=== PATIENT | male | born 1990 | race Caucasian/White ===

== ENCOUNTER 2018-12-03 00:31 | Emergency (ER) | payer BC ==
[2018-12-03] MEDS ORDERED: Sodium Chloride 0.9% 2.5 ML Syringe FLUSH PRN (00:32)
[2018-12-03] MEDS ORDERED: Sodium Chloride 0.9% 10 ML Syringe FLUSH PRN (00:32)
[2018-12-03] MEDS ORDERED: Sodium Chloride 0.9% 1,000 ML IV ONE (00:42)
[2018-12-03] MEDS ORDERED: Pantoprazole 40 MG Vial IVPUSH ONE (00:42)
[2018-12-03] MEDS ORDERED: Ketorolac 30 MG/ML SDV IVPUSH ONE (00:43)
[2018-12-03] MEDS ORDERED: Aspirin 81 MG Tab.Chew PO ONE (00:43)
--- NOTE | 2018-12-03 00:49 | EDM.PDOC ---
ED HPI GENERAL MEDICAL PROBLEM - General Chief Complaint: Chest Pain Stated Complaint: CHEST PAIN Time Seen by Provider: 12/03/18 00:40 - History of Present Illness INITIAL COMMENTS - FREE TEXT/NARRATIVE: HISTORY AND PHYSICAL: History of present illness: The patient is a 28-year-old male who works here on the [employer] and lives in [place] and is scheduled to drive home in the morning for 12 hours and presents with concerns about right sided anterior chest pain that has been ongoing for the last 3 days. The patient has no local provider and says he does work here and had a similar episode about a year ago but it was more associated with palpitations which she has not had with this episode and he was drinking a lot of energy drinks at that time which she has cut back on. The patient says that about 3 days ago he started having this left anterior chest pain that seemed to radiate up his chest and caused tingling and numbness in her right upper extremity. He had no left chest pain but there was associated shortness of breath. He has had intermittent nausea and vomiting throughout the last 3 days and he says the pain has been waxing and waning but it is never gone away completely. It is not worsened by taking deep breaths or movement and he denies any recent trauma or increased strenuous activity. He has had normal bowel movements and when he vomits it is not black or bloody. The patient says that he has trouble with his wisdom teeth and that is why he is going home to have them removed and over the last few weeks he has taken increased amount of ibuprofen [id number]. He has no GI history that he is aware of. The patient did not take any medication for pain specifically this evening or specifically for this discomfort such as antacids. She is not eating a healthy diet here while he is at work and is eating more on the go but he has no history of food intolerance. He has no history of any abdominal surgical history gallbladder liver or pancreas issues. He says he drinks occasionally and not regularly and he does smoke a small amount of cigarettes but no drug use. He says that his mother does have some heart issues but he is not sure what they are but they're not stents are open heart surgery and his father and siblings have no cardiac disease. Any flank pain or urinary complaints and has no leg pain or swelling. When he talks about the tingling in his arm he also says that that has been constant over the last 3 days and there is no weakness in the arm. The patient says that the more he reads on the Internet and when he was reading the label on the ibuprofen he became more stressed and anxious and thought he should not get into a car to drive home to [place] in the morning and less he get checked out. This is the only reason why he says he is here Review of systems: As per history of present illness and below otherwise all systems reviewed and negative. Past medical history: As per history of present illness and as reviewed below otherwise noncontributory. Surgical history: As per history of present illness and as reviewed below otherwise noncontributory. Social history: No reported history of drug or alcohol abuse. Family history: As per history of present illness and as reviewed below otherwise noncontributory. Physical exam: General: Well-developed well-nourished man who is nontoxic and vital signs are noted by me. He is very physically fit HEENT: Atraumatic, normocephalic, , negative for conjunctival pallor or scleral icterus, mucous membranes moist, throat clear, neck supple, nontender, trachea midline. Lungs: Clear to auscultation, breath sounds equal bilaterally, chest nontender. On palpation of the right chest wall I cannot reproduce the pain and there are no defects deformities or crepitus. The patient indicates under his rib cage as the site of the discomfort. Heart: S1S2, regular, negative for clicks, rubs, or JVD. Abdomen: Soft, nondistended, nontender. More specifically in the right upper quadrant I cannot elicit any tenderness and bowel sounds are slightly hypoactive. There is no rebound or guarding throughout my exam and no tympany on percussion Negative for masses or hepatosplenomegaly. Negative for costovertebral tenderness. Pelvis: Stable nontender. Genitourinary: Deferred. Rectal: Deferred. Extremities: Atraumatic, negative for cords or calf pain. Neurovascular unremarkable. No pedal edema or leg asymmetry Neuro: Awake, alert, oriented. Cranial nerves II through XII unremarkable. Cerebellum unremarkable. Motor and sensory unremarkable throughout. Exam nonfocal. Diagnostics: EKG chest x-ray CBC CMP amylase lipase H. pylori troponin d-dimer Therapeutics: IV O2 monitor aspirin Protonix Toradol Please note that the patient refused the IV placement aspirin Protonix and Toradol and only wants the blood work and chest x-ray performed. Patient is aware of all testing results and of my concerns and does not want further intervention. He says he has a family doctor at home and he refused the IV and meds because he is concerned about the cost. I cautioned him to refrain from using nonsteroidals and aspirin based products as he was overusing them and may of caused some gastric irritation and also avoid caffeinated products. I 've also advised eating a low-fat diet and have made some suggestions for follow -up with his provider at home including a symptom journal. He states understanding and is comfortable Impression: Right-sided chest pain stable etiology unclear Definitive disposition and diagnosis as appropriate pending reevaluation and review of above. Chest Pain Score (Numeric/FACES): 4 - Related Data Allergies Allergy/AdvReac Type Severity Reaction Status Date / Time animal dander Allergy Shortness Verified 12/03/18 00:38 of Breath Home Meds: Home Meds . [No Known Home Meds] 12/03/18 [History] Past Medical History HEENT History: Reports: None Cardiovascular History: Reports: None Respiratory History: Reports: Asthma Gastrointestinal History: Reports: None Genitourinary History: Reports: None Musculoskeletal History: Reports: None Neurological History: Reports: None Psychiatric History: Reports: None Endocrine/Metabolic History: Reports: None Hematologic History: Reports: None Immunologic History: Reports: None Oncologic (Cancer) History: Reports: None Dermatologic History: Reports: None - Infectious Disease History Infectious Disease History: Reports: None - Past Surgical History Head Surgeries/Procedures: Reports: None Social & Family History - Tobacco Use Smoking Status *Q: Light Tobacco Smoker Years of Tobacco use: 5 Packs/Tins Daily: 0.5 - Caffeine Use Caffeine Use: Reports: Coffee, Tea - Recreational Drug Use Recreational Drug Use: No ED ROS GENERAL - Review of Systems Review Of Systems: ROS reveals no pertinent complaints other than HPI. ED EXAM, GENERAL - Physical Exam Exam: See Below (See dictation) Course - Vital Signs Last Recorded V/S: Last Vital Signs Temp 36.8 C 12/03/18 00:34 Pulse 63 12/03/18 01:25 Resp 14 12/03/18 01:25 BP 132/79 12/03/18 01:25 Pulse Ox 97 12/03/18 01:25 - Orders/Labs/Meds Orders: Active Orders 24 hr Category Date Time Status Cardiac Monitoring [RC] . DIRECTED Care 12/03/18 00:32 Active EKG Documentation Completion [RC] STAT Care 12/03/18 00:32 Active Oxygen Therapy, ED [RC] ASDIRECTED Care 12/03/18 00:32 Active Pulse Oximetry [RC] ASDIRECTED Care 12/03/18 00:32 Active Sodium Chloride 0.9% [Normal Saline] 1,000 ml Med 12/03/18 00:42 Active IV STAT Sodium Chloride 0.9% [Saline Flush] Med 12/03/18 00:32 Active 10 ml FLUSH ASDIRECTED PRN Sodium Chloride 0.9% [Saline Flush] Med 12/03/18 00:32 Active 2.5 ml FLUSH ASDIRECTED PRN Saline Lock Insert [OM.PC] Stat Oth 12/03/18 00:32 Ordered Medication Orders Sodium Chloride (Normal Saline) 1,000 mls @ 999 mls/hr IV STAT ONE Stop: 12/03/18 01:42 Last Admin: 12/03/18 01:13 Dose: Not Given Sodium Chloride (Saline Flush) 10 ml FLUSH ASDIRECTED PRN PRN Reason: Keep Vein Open Sodium Chloride (Saline Flush) 2.5 ml FLUSH ASDIRECTED PRN PRN Reason: Keep Vein Open Labs: Laboratory Tests 12/03/18 12/03/18 12/03/18 Range/Units 00:50 00:50 00:50 WBC 6.02 (4.0-11.0) K/uL RBC 5.31 (4.50-5.90) M/uL Hgb 15.3 (13.0-17.0) g/dL Hct 43.9 (38.0-50.0) % MCV 82.7 (80.0-98.0) fL MCH 28.8 (27.0-32.0) pg MCHC 34.9 (31.0-37.0) g/dL RDW Std Deviation 38.0 (28.0-62.0) fl RDW Coeff of Carlito 13 (11.0-15.0) % Plt Count 176 (150-400) K/uL MPV 10.50 (7.40-12.00) fL Neut % (Auto) 58.3 (48.0-80.0) % Lymph % (Auto) 28.9 (16.0-40.0) % [place] % (Auto) 8.3 (0.0-15.0) % Eos % (Auto) 4.2 (0.0-7.0) % Baso % (Auto) 0.3 (0.0-1.5) % Neut # (Auto) 3.5 (1.4-5.7) K/uL Lymph # (Auto) 1.7 (0.6-2.4) K/uL [place] # (Auto) 0.5 (0.0-0.8) K/uL Eos # (Auto) 0.3 (0.0-0.7) K/uL Baso # (Auto) 0.0 (0.0-0.1) K/uL D-Dimer, Quantitative (0.0-0.50) mg/L FEU Sodium 140 (136-148) mmol/L Potassium 3.8 (3.5-5.1) mmol/L Chloride 104 (98-107) mmol/L Carbon Dioxide 27.1 (21.0-32.0) mmol/L BUN 19 H (7.0-18.0) mg/dL Creatinine 0.9 (0.8-1.3) mg/dL Est Cr Clr Drug Dosing TNP Estimated GFR (MDRD) > 60.0 ml/min Glucose 104 (74-106) mg/dL Calcium 9.3 (8.5-10.1) mg/dL Total Bilirubin 0.4 (0.2-1.0) mg/dL AST 18 (15-37) IU/L ALT 31 (14-63) IU/L Alkaline Phosphatase 80 (46-116) U/L Troponin I < 0.050 (0.000-0.056) ng/mL Total Protein 7.5 (6.4-8.2) g/dL Albumin 4.1 (3.4-5.0) g/dL Globulin 3.4 (2.6-4.0) g/dL Albumin/Globulin Ratio 1.2 (0.9-1.6) Amylase (25-115) U/L Lipase 183 (73-393) U/L H. pylori IgG Antibody NEGATIVE (NEG) 12/03/18 12/03/18 Range/Units 00:50 00:50 WBC (4.0-11.0) K/uL RBC (4.50-5.90) M/uL Hgb (13.0-17.0) g/dL Hct (38.0-50.0) % MCV (80.0-98.0) fL MCH (27.0-32.0) pg MCHC (31.0-37.0) g/dL RDW Std Deviation (28.0-62.0) fl RDW Coeff of Carlito (11.0-15.0) % Plt Count (150-400) K/uL MPV (7.40-12.00) fL Neut % (Auto) (48.0-80.0) % Lymph % (Auto) (16.0-40.0) % [place] % (Auto) (0.0-15.0) % Eos % (Auto) (0.0-7.0) % Baso % (Auto) (0.0-1.5) % Neut # (Auto) (1.4-5.7) K/uL Lymph # (Auto) (0.6-2.4) K/uL [place] # (Auto) (0.0-0.8) K/uL Eos # (Auto) (0.0-0.7) K/uL Baso # (Auto) (0.0-0.1) K/uL D-Dimer, Quantitative 0.32 (0.0-0.50) mg/L FEU Sodium (136-148) mmol/L Potassium (3.5-5.1) mmol/L Chloride (98-107) mmol/L Carbon Dioxide (21.0-32.0) mmol/L BUN (7.0-18.0) mg/dL Creatinine (0.8-1.3) mg/dL Est Cr Clr Drug Dosing Estimated GFR (MDRD) ml/min Glucose (74-106) mg/dL Calcium (8.5-10.1) mg/dL Total Bilirubin (0.2-1.0) mg/dL AST (15-37) IU/L ALT (14-63) IU/L Alkaline Phosphatase (46-116) U/L Troponin I (0.000-0.056) ng/mL Total Protein (6.4-8.2) g/dL Albumin (3.4-5.0) g/dL Globulin (2.6-4.0) g/dL Albumin/Globulin Ratio (0.9-1.6) Amylase 64 (25-115) U/L Lipase (73-393) U/L H. pylori IgG Antibody (NEG) Meds: Medications Generic Name Dose Route Start Last Admin Trade Name Freq PRN Reason Stop Dose Admin Sodium Chloride 1,000 mls @ 999 mls/hr 12/03/18 00:42 12/03/18 01:13 Normal Saline IV 12/03/18 01:42 Not Given STAT ONE Sodium Chloride 10 ml 12/03/18 00:32 Saline Flush FLUSH ASDIRECTED PRN Keep Vein Open Sodium Chloride 2.5 ml 12/03/18 00:32 Saline Flush FLUSH ASDIRECTED PRN Keep Vein Open Discontinued Medications Generic Name Dose Route Start Last Admin Trade Name Freq PRN Reason Stop Dose Admin Aspirin 324 mg 12/03/18 00:43 12/03/18 01:13 Aspirin PO 12/03/18 00:44 Not Given ONETIME ONE Sodium Chloride Confirm 12/03/18 01:07 12/03/18 01:13 Normal Saline Administered 12/03/18 01:08 Not Given Dose 20 mls @ as directed .ROUTE .STK-MED ONE Ketorolac Tromethamine 30 mg 12/03/18 00:43 12/03/18 01:12 Toradol IVPUSH 12/03/18 00:44 Not Given ONETIME ONE Pantoprazole Sodium 80 mg 12/03/18 00:42 12/03/18 01:13 Protonix Iv IVPUSH 12/03/18 00:43 Not Given .BOLUS ONE Departure - Departure Time of Disposition: 01:37 Disposition: Home, Self-Care 01 Condition: Good Clinical Impression: Right-sided chest pain - Discharge Information Forms: ED Department Discharge Additional Instructions: The following information is given to patients seen in the emergency department who are being discharged to home. This information is to outline your options for follow-up care. We provide all patients seen in our emergency department with a follow-up referral. The need for follow-up, as well as the timing and circumstances, are variable depending upon the specifics of your emergency department visit. If you don't have a primary care physician on staff, we will provide you with a referral. We always advise you to contact your personal physician following an emergency department visit to inform them of the circumstance of the visit and for follow-up with them and/or the need for any referrals to a consulting specialist. The emergency department will also refer you to a specialist when appropriate. This referral assures that you have the opportunity for followup care with a specialist. All of these measure are taken in an effort to provide you with optimal care, which includes your followup. Under all circumstances we always encourage you to contact your private physician who remains a resource for coordinating your care. When calling for followup care, please make the office aware that this follow-up is from your recent emergency room visit. If for any reason you are refused follow-up, please contact the [facility] emergency department at and ask to speak to the emergency department charge nurse. [facility] Primary care- [place] [address] Try to eat a low-fat diet and reduce caffeine use and do not take any Motrin and aspirin ibuprofen Aleve or other similar products at this may cause stomach irritation. Please schedule a follow-up appointment with your provider back home in [place] or one of ours for further care and evaluation of this problem as we discussed. Return to ER as needed and as discussed - My Orders Last 24 Hours: My Active Orders 12/03/18 00:32 Cardiac Monitoring [RC] . DIRECTED EKG Documentation Completion [RC] STAT Oxygen Therapy, ED [RC] ASDIRECTED Pulse Oximetry [RC] ASDIRECTED Sodium Chloride 0.9% [Saline Flush] 10 ml FLUSH ASDIRECTED PRN Sodium Chloride 0.9% [Saline Flush] 2.5 ml FLUSH ASDIRECTED PRN Saline Lock Insert [OM.PC] Stat 12/03/18 00:42 Sodium Chloride 0.9% [Normal Saline] 1,000 ml IV STAT - Assessment/Plan Last 24 Hours: My Active Orders 12/03/18 00:32 Cardiac Monitoring [RC] . DIRECTED EKG Documentation Completion [RC] STAT Oxygen Therapy, ED [RC] ASDIRECTED Pulse Oximetry [RC] ASDIRECTED Sodium Chloride 0.9% [Saline Flush] 10 ml FLUSH ASDIRECTED PRN Sodium Chloride 0.9% [Saline Flush] 2.5 ml FLUSH ASDIRECTED PRN Saline Lock Insert [OM.PC] Stat 12/03/18 00:42 Sodium Chloride 0.9% [Normal Saline] 1,000 ml IV STAT
[2018-12-03] MEDS ORDERED: Sodium Chloride 0.9% 0 ML ONE (01:07)
--- NOTE | 2018-12-03 01:19 | CR ---
INDICATION: chest pain. 1 image. no prior TECHNIQUE: Chest 1 view. COMPARISON: None. FINDINGS: Cardiovascular and mediastinum: Heart size and vasculature are normal in caliber and appearance. Mediastinum is within normal limits. Lungs and pleural space: Lungs are clear. No sign of infiltrate or mass. No sign of pleural effusion. No pneumothorax. Bones and soft tissues: No significant findings. IMPRESSION: Unremarkable chest. Dictated by: Damion Lewis MD @ 12/03/2018 01:17:57 (Electronically Signed)
[2018-12-03 01:25] LABS: CHLORIDE,CL 104 mmol/L (98-107); SODIUM,NA 140 mmol/L (136-148)
== END 2018-12-03 01:40 | disposition home or self-care (01) ==
LOC: MW.ED 00:31
DX: R07.9 Chest pain, unspecified (principal); F17.210 Nicotine dependence, cigarettes, uncomplicated
CPT/HCPCS: 36415; 71045; 71045-26; 80053; 82150; 83690; 84484; 85025; 85379; 86677; 93005; 99284; 99285-25